=== PATIENT | male | born 1965 | race Caucasian/White ===

== ENCOUNTER 2018-12-03 23:31 | Inpatient (IN) | payer OTHER ==
[~2018-12-03] VITALS: Ht 175.3 cm; Wt 94.2 kg
[~2018-12-03 23:31] MED LIST: ATIVAN1 MG; ATIVAN1 MG PO; CENTRUM SILVER1 EAC4 PO; DEPAKOTE250 MG PO; FLEXERIL PO; FLUZONE 2045 MCG/010; IBUPROFEN 800800 M1 PO; LEVOTHYROXIN0.025 MG PO; LEVOTHYROXINE0.05 MG PO; LORAZEPAM 2MG TA2 M1 PO; MAG-OX 400 TAB400 M1 PO; NOHOMEMEDICATIONS; PHENERGAN 25 MG25 M1 PO; PRENATAL PO; REVIA 50 MG TAB50 M1 PO; TOPROL XL25 MG PO; TRINATAL ULTRA1 EACH PO; TRIPLE ANTIBIO1 EACH TP; VITAMIN B-1100 MG PO; ZOLOFT 50 MG TA50 M1 PO
[2018-12-03 23:33] VITALS: BP 112/72
[2018-12-04] VITALS (9 sets, daily range): BP systolic 88–139; BP diastolic 55–80
[2018-12-04] MEDS ORDERED: TRAZODONE 150150 M1 PO (00:06)
[2018-12-04] MEDS ORDERED: CARDURA4 MG PO ×2 (00:07→00:16)
[2018-12-04] MEDS ORDERED: ZANAFLEX4 MG PO (00:08)
[2018-12-04] MEDS ORDERED: AMARYL4 MG PO (00:09)
[2018-12-04] MEDS ORDERED: ATIVAN0.5 MG PO (00:11)
[2018-12-04] MEDS ORDERED: ALDACTONE50 MG PO (00:12)
[2018-12-04] MEDS ORDERED: LEXAPRO20 MG PO (00:13)
[2018-12-04] MEDS ORDERED: REVIA 50 MG TAB50 MG PO (00:14)
[2018-12-04] MEDS ORDERED: OMEPRAZOLE40 MG PO (00:15)
[2018-12-04 01:42] LABS: ABSOLUTE NEUTROPHILS 6.6 thou/uL (1.4-8.2); BASOPHILS 0.4 % (0.0-2.0); HEMATOCRIT 43.8 % (42.0-52.0); HEMOGLOBIN 14.7 gm/dL (14.0-18.0); LYMPHOCYTES 17.3 % (24.0-44.0); MCH 32.1 pg (26.0-34.0); MCHC 33.5 g/dL (28.0-37.0); MCV 95.8 fL (80.0-100.0); MONOCYTES 5.8 % (1.0-8.0); PLATELET COUNT 141 thou/uL (150-400); POLYS 76.5 % (36.0-66.0); RBC 4.57 mil/uL (4.50-6.00); RDW 13.7 % (10.5-14.5); WBC 8.6 thou/uL (4.0-11.0)
[2018-12-04 01:46] LABS: CALCIUM 8.2 mg/dL (8.5-10.1); CREATININE 1.4 mg/dL (0.7-1.3); MAGNESIUM 1.8 mg/dL (1.8-2.4); POTASSIUM 3.6 mmol/L (3.5-5.1)
[2018-12-04 09:46] LABS: FOLIC ACID 39.4 ng/mL (8.6-58.9)
--- NOTE | 2018-12-04 12:38 | 2DMMODE ---
[facility] [address] [place] [address] 2 D/M-MODE ECHOCARDIOGRAM Name: HILARY SYED DEEPIKA Room #: 202-P [facility] IN M.R.#: [id number] ������������� Admission: 12/04/18 ������������� Attend Phys: Chantelle Venegas MD Discharge: ��� ������������� ��� Date of : 61 Date of Service: 12/04/18 1238 �� Report #: [id number] �������� ��������������������������������������������[id number] THIS REPORT FOR: //name// APPROVED REPORT Study performed: 12/04/2018 11:37:25 EXAM: Comprehensive 2D, Doppler, and color-flow Echocardiogram Patient Location: Bedside Room #: 202 Status: routine BSA: 2.09 HR: 90 bpm BP: 114/78 mmHg Other Information Study Quality: Adequate Indications Diabetes Hypertension/HDD afib with RVR 2D Dimensions RVDd: 33.93 mm IVSd: 15.77 (7-11mm) LVOT Diam: 25.00 (18-24mm) LVDd: 42.76 mm PWd: 17.35 (7-11mm) Ascending Ao: 31.34 (22-36mm) LVDs: 28.30 (25-40mm) Aortic Root: 36.66 mm Volumes Left Atrial Volume (Systole) Single Plane 4CH: 46.61 mL Single Plane 2CH: 39.13 mL LA ESV Index: 22.00 mL/m2 Aortic Valve AoV Peak Dylon.: 1.21 m/s AO Peak Gr.: 5.85 mmHg LVOT Max P.55 mmHg LVOT Max V: 1.18 m/s JUNE Vmax: 4.78 cm2 Mitral Valve E/A Ratio: 1.7 MV Decel. Time: 154.18 ms [facility] [address] [place] [address] 2 D/M-MODE ECHOCARDIOGRAM Name: HILARY SYED Room #: 202-P [facility] IN [facility].#: [id number] ������������� Admission: 12/04/18 ������������� Attend Phys: Chantelle Venegas MD Discharge: ��� ������������� ��� Date of : 61 Date of Service: 12/04/18 1238 �� Report #: [id number] �������� ��������������������������������������������[id number] MV E Max Dylon.: 0.87 m/s MV A Dylon.: 0.52 m/s MV PHT: 44.71 ms IVRT: 65.74 ms Pulmonary Valve PV Peak Dylon.: 1.07 m/s PV Peak Gr.: 4.62 mmHg Pulmonary Vein P Vein S: 0.46 m/s P Vein A: 0.08 m/s P Vein D: 0.38 m/s P Vein A Dur.: 100.3 msec P Vein S/D Ratio: 1.21 Left Ventricle The left ventricle is normal size. There is normal LV segmental wall motion. Moderate concentric left ventricular hypertrophy. The left ventricular systolic function is normal. The left ventricular ejection fraction is within the normal range. LVEF is 60-65%. The left ventricular diastolic function is normal. Right Ventricle The right ventricle is normal size. The right ventricular systolic function is normal. Atria The left atrium size is normal. The right atrium size is normal. Aortic Valve The aortic valve is normal in structure. No aortic regurgitation is present. There is no aortic valvular stenosis. Mitral Valve The mitral valve is normal in structure. There is no mitral valve regurgitation noted. No evidence of mitral valve stenosis. Tricuspid Valve The tricuspid valve is normal in structure. There is no tricuspid valve regurgitation noted. Unable to assess PA pressure. Pulmonic Valve The pulmonary valve is normal in structure. There is no pulmonic valvular regurgitation. Great Vessels The aortic root is normal in size. IVC is not [address] [address] 2 D/M-MODE ECHOCARDIOGRAM Name: SYEDHILARY DEEPIKA Room #: 202-P [facility] IN M.R.#: [id number] ������������� Admission: 12/04/18 ������������� Attend Phys: Chantelle Venegas MD Discharge: ��� ������������� ��� Date of : 61 Date of Service: 12/04/18 1238 �� Report #: [id number] �������� ��������������������������������������������[id number] visualized. Pericardium There is no pericardial effusion. <Conclusion> The left ventricular systolic function is normal. There is normal LV segmental wall motion. LVEF 60-65%. The aortic valve is normal in structure. No aortic regurgitation or stenosis The mitral valve is normal in structure. No mitral valve regurgitation. Unable to assess pulmonary artery pressure. There is no pericardial effusion. ��������������������������������������������� <ELECTRONICALLY SIGNED> ���������������������������������������� By: Fei Graf MD, FACC ��������������������������������������������� 12/04/18 1238 1238 1238 Fei Graf MD, [facility] /INF
--- NOTE | 2018-12-04 17:01 | EKG ---
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1965 Requested By: Meliza Dial Order Number: [id number] MD: Adan Colon Measurements Intervals [place] Rate: 158 P: [place]: QRS: -10 QRSD: 96 T: -12 QT: 304 QTc: 493 Interpretive Statements Atrial fibrillation Borderline low voltage, extremity leads Abnormal R-wave progression, late transition Borderline prolonged QT interval Compared to ECG 07/27/2011 14:58:18 Sinus rhythm no longer present Electronically Signed On 12-04-2018 17:00:57 CDT by Adan Colon [email or web address] ��������������������������������������������� <ELECTRONICALLY SIGNED> ���������������������������������������� By: Adan Colon MD ��������������������������������������������� 12/04/18 1700 0351 0351 Adan Colon MD /EPI
[2018-12-05 03:23] VITALS: BP 123/66
[2018-12-05 07:09] VITALS: BP 118/62
[2018-12-05] MEDS ORDERED: VERAPAMIL HCL180 M4 PO (10:32)
[2018-12-05] MEDS ORDERED: METOPROLOL SUCC25 M1 PO (10:32)
[2018-12-05 11:20] VITALS: BP 118/62
== END 2018-12-05 11:55 | disposition home or self-care (01) | DRG 309 ==
LOC: ER 23:31 → EROBS 12-04 05:39 → 2N 12-04 05:39
PROVIDERS: Emergency Medicine; Nurse Practitioner; ADMIT Internal Medicine
DX: I48.91 Unspecified atrial fibrillation (principal); N17.9 Acute kidney failure, unspecified; E03.9 Hypothyroidism, unspecified; F12.90 Cannabis use, unspecified, uncomplicated; F10.20 Alcohol dependence, uncomplicated; E11.9 Type 2 diabetes mellitus without complications; G43.909 Migraine, unspecified, not intractable, without status migrainosus; D69.6 Thrombocytopenia, unspecified; K74.60 Unspecified cirrhosis of liver; F41.9 Anxiety disorder, unspecified; Z88.7 Allergy status to serum and vaccine; Z79.899 Other long term (current) drug therapy
CPT/HCPCS: 10081

== ENCOUNTER 2019-07-24 12:10 | Emergency (ER) | payer OTHER ==
[~2019-07-24] VITALS: Ht 175.3 cm; Wt 104.3 kg
[~2019-07-24 12:10] MED LIST changes: +ALDACTONE50 MG PO; +AMARYL4 MG PO; +ATIVAN0.5 MG PO; +CARDURA4 MG PO; +LEXAPRO20 MG PO; +METOPROLOL SUCC25 M1 PO; +OMEPRAZOLE40 MG PO; +REVIA 50 MG TAB50 MG PO; +TRAZODONE 150150 M1 PO; +VERAPAMIL HCL180 M4 PO; +ZANAFLEX4 MG PO
[2019-07-24 12:30] LABS: ANION GAP 16 mmol/L (7-16); BUN 14 mg/dL (7-18); CALCIUM 9.4 mg/dL (8.5-10.1); CHLORIDE 98 mmol/L (98-107); CO2 22 mmol/L (21-32); CREATININE 1.3 mg/dL (0.7-1.3); GLUCOSE 191 mg/dL (74-106); POTASSIUM 3.5 mmol/L (3.5-5.1); SODIUM 136 mmol/L (136-145)
[2019-07-24 12:33] LABS: ABSOLUTE NEUTROPHILS 5.3 thou/uL (1.4-8.2); BASOPHILS 0.5 % (0.0-2.0); EOSINOPHILS 0.1 % (0.0-3.0); HEMOGLOBIN 13.9 gm/dL (14.0-18.0); LYMPHOCYTES 18.9 % (24.0-44.0); MCH 31.3 pg (26.0-34.0); MCHC 33.1 g/dL (28.0-37.0); MCV 94.5 fL (80.0-100.0); PLATELET COUNT 137 thou/uL (150-400); POLYS 75.5 % (36.0-66.0); RBC 4.45 mil/uL (4.50-6.00); RDW 14.2 % (10.5-14.5)
[2019-07-24 12:38] LABS: TROPONIN-I <0.06 ng/mL (<0.06)
[2019-07-24 13:47] VITALS: BP 107/68
--- NOTE | 2019-07-24 13:54 | EKG ---
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1965 Requested By: Philip Ayala Order Number: [id number] MD: Fei Graf Measurements Intervals [place] Rate: 93 P: 27 SC: 214 QRS: -11 QRSD: 98 T: 20 QT: 383 QTc: 477 Interpretive Statements Sinus rhythm Prolonged SC interval Early R-wave progression Compared to ECG 12/04/2018 03:51:43 Atrial fibrillation no longer present Electronically Signed On 07-24-2019 13:53:59 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
== END 2019-07-24 13:47 | disposition home or self-care (01) ==
LOC: ER 12:10
PROVIDERS: Emergency Medicine
DX: E16.2 Hypoglycemia, unspecified (principal); E03.9 Hypothyroidism, unspecified